=== PATIENT | male | born 1985 | race African-American/Black ===

== ENCOUNTER 2023-07-27 06:04 | Emergency (ER) | payer MEDICARE, OTHER ==
[2023-07-27 06:24] VITALS: BP 117/78; PULSE 115; RESP 18; TEMP 100.6; BMI 22.9
== END 2023-07-27 08:39 | disposition left against medical advice (07) ==
LOC: JER 06:04
DX: J11.1 Influenza due to unidentified influenza virus with other respiratory manifestations (principal)
CPT/HCPCS: 99281-25